=== PATIENT | female | born 1990 | race Caucasian/White ===

== ENCOUNTER 2019-06-05 05:45 | Emergency (ER) | payer OTHER, SELFPAY ==
[2019-06-05] MEDS ORDERED: ACETAMINOPHEN 500 MG TAB ONE (06:36)
[2019-06-05] MEDS ORDERED: LEVALBUTEROL 1.25 MG/3 ML NEB ONE (06:36)
[2019-06-05] MEDS ORDERED: ONDANSETRON 4 MG (ODT) TAB ONE (06:36)
[2019-06-05] MEDS ORDERED: PEN G BENZ LA 1.2MU/2ML SYRINGE IM ONE (07:55)
[2019-06-05] MEDS ORDERED: IBUPROFEN 400 MG TAB ONE (08:08)
[2019-06-05] MEDS ORDERED: IBUPROFEN 200 MG TAB PO ONE (08:08)
--- NOTE | 2019-06-05 08:21 | EDPHYS ---
Physician Documentation [facility] Name: Reena Sutton Age: 28 yrs Sex: Female : 1990 Arrival Date: 06/05/2019 Time: 05:48 Bed 13 Private MD: ED Physician Kanu Young HPI: 06/04 06:08 This 28 yrs old Female presents to ER via Ambulatory with complaints of Flu jmm Symptoms. 06:08 Onset: The symptoms/episode began/occurred 3 day(s) ago. Associated signs and symptoms: jmm Pertinent positives: cough, diarrhea, fever, vomiting. Modifying factors: The patient symptoms are alleviated by nothing, the patient symptoms are aggravated by nothing. This is a 28 year old female with a history of anemia that presents to the ED with complaints of cough, congestion, fever, sore throat, vomiting, diarrhea. Patient states a coworker had similar symptoms. . 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 - Social history:: Smoking status: Patient denies any tobacco usage or history of. ROS: 06:08 Constitutional: Positive for fever. jmm 06:08 ENT: Positive for sore throat. 06:08 Respiratory: Positive for cough. 06:08 Abdomen/GI: Positive for vomiting, diarrhea. 06:08 All other systems are negative. Exam: 06:08 Head/Face: atraumatic. Eyes: EOMI, no conjunctival erythema appreciated jmm 06:08 Chest/axilla: Normal chest wall appearance and motion. 06:08 Abdomen/GI: Non distended, soft Back: Normal ROM Skin: General appearance color normal MS/ Extremity: Moves all extremities, no obvious deformities appreciated, no edema noted to the lower extremities Neuro: Awake and alert, normal gait Psych: Behavior is normal, Mood is normal, Patient is cooperative and pleasant 06:08 Constitutional: The patient appears alert, awake, uncomfortable. 06:08 ENT: Posterior pharynx: erythema, that is moderate. 06:08 Cardiovascular: Rate: normal, Rhythm: regular. 06:08 Respiratory: the patient does not display signs of respiratory distress, Respirations: normal, Breath sounds: are clear throughout. 06:08 Abdomen/GI: Inspection: abdomen appears normal, Bowel sounds: normal, Palpation: soft, in all quadrants. 06:08 Back: CVA tenderness, is absent, is noted bilaterally. Vital Signs: 06:08 BP 116 / 75; Pulse 92; Resp 20; Temp 102.3(O); Pulse Ox 99% on R/A; Weight 61.23 kg lp1 (R); Height 5 ft. 4 in. (162.56 cm); Pain 7/10; 07:10 BP 106 / 68; Pulse 114; Resp 20 S; Temp 98.9(O); Pulse Ox 99% on R/A; em 06:08 Body Mass Index 23.17 (61.23 kg, 162.56 cm) lp1 MDM: 06:15 Patient medically screened. [facility] 08:17 Data reviewed: vital signs, nurses notes. Counseling: I had a detailed discussion with césar the patient and/or guardian regarding: the historical points, exam findings, and any diagnostic results supporting the discharge/admit diagnosis, lab results, the need for outpatient follow up, to return to the emergency department if symptoms worsen or persist or if there are any questions or concerns that arise at home. ED course: Patient is alert and non toxic in appearance. No signs of resp distress appreciated. Increased HR most likely due to xopenex. Patient treated for strep in the ED with bicillin. Out of the window for tamiflu. Patient given strict return precautions. Patient understood and agrees with the plan of care. . 06/04 06:07 Order name: Flu; Complete Time: 06:30 lp1 06/04 06:07 Order name: Strep; Complete Time: 06:51 1 06/04 07:48 Order name: Urine Dipstick--Ancillary (enter results) 06/04 07:48 Order name: Urine --Ancillary (enter results) [facility] 06/04 06:29 Order name: Urine Dipstick-Ancillary (obtain specimen); Complete Time: 07:47 [facility] 06/04 06:29 Order name: Urine Test (obtain specimen); Complete Time: 07:47 [facility] 06/04 07:37 Order name: Vital Signs; Complete Time: 07:52 [facility] Administered Medications: 06:38 Drug: Tylenol 1000 mg Route: PO; lp1 07:58 Follow up: Response: No adverse reaction; Temperature is decreased em 06:38 Drug: Zofran (Ondansetron) 4 mg Route: PO; lp1 07:58 Follow up: Response: No adverse reaction; Marked relief of symptoms; Nausea is decreasedem 06:38 Drug: Xopenex (3) 1.25 mg Route: Inhalation; lp1 07:57 Follow up: Response: No adverse reaction; Marked relief of symptoms em 07:55 Drug: Bicillin L-A 1.2 million units Route: IM; Site: right gluteus; em 08:25 Follow up: Response: No adverse reaction em 08:07 Drug: Motrin 600 mg Route: PO; em 08:26 Follow up: Response: No adverse reaction em Disposition: 10:52 Co-signature as Attending Physician, Kanu Young MD I agree with the assessment and tw4 plan of care. Disposition: 06/05/19 08:20 Discharged to Home. Impression: Influenza due to certain identified influenza viruses, Streptococcal pharyngitis. - Condition is Stable. - Discharge Instructions: Influenza, Adult, Strep Throat. - Prescriptions for Bromfed DM 2- 30-10 mg/5 mL Oral syrup - take 10 milliliter by ORAL route every 4 hours; 1 bottle. Zofran ODT 4 mg Oral tablet,disintegrating - place 1 tablet by TRANSLINGUAL route every 4-6 hours; 20 tablet. - Medication Reconciliation Form, Thank You Letter, Antibiotic Education, Prescription Opioid Use, Work release form form. - Follow up: Private Physician; When: 2 - 3 days; Reason: Recheck today's complaints, Continuance of care, Re-evaluation by your physician. Signatures: Dispatcher [employer] Abhijit Campbell PA PA jmm Munoz, Edgar, RN RN em Pena, Laura, RN RN lp1 Wadley, Terrence, MD MD tw4 Corrections: (The following items were deleted from the chart) 08:40 08:20 06/05/2019 08:20 Discharged to Home. Impression: Influenza due to certain em identified influenza viruses; Streptococcal pharyngitis. Condition is Stable. Forms are Medication Reconciliation Form, Thank You Letter, Antibiotic Education, Prescription Opioid Use. Follow up: Private Physician; When: 2 - 3 days; Reason: Recheck today's complaints, Continuance of care, Re-evaluation by your physician. césar
--- NOTE | 2019-06-05 08:21 | ER ---
Nurse's Notes [facility] Name: Reena Sutton Age: 28 yrs Sex: Female : 1990 Arrival Date: 06/05/2019 Time: 05:48 Bed 13 Private MD: Diagnosis: Influenza due to certain identified influenza viruses;Streptococcal pharyngitis Presentation: 06/04 06:08 Chief complaint: Patient states: Cough, congestion, body aches, chills since Sunday; lp1 States some diarrhea, pelvic pain, low back pain; Productive cough; Took OTC Cold and Flu medicine at home. Coronavirus screen: The patient has NOT traveled to a country currently being monitored by the CDC within the last 14 days. The patient has NOT had contact with any known and/or suspected case of coronavirus. Ebola Screen: No symptoms or risks identified at this time. Initial Sepsis Screen: Does the patient meet any 2 criteria? Temp <36.0*C (96.8*F)) or > 38.3*C (100.9*F). HR > 90 bpm. Yes Does the patient have a suspected source of infection? Yes: Productive cough/pneumonia If YES to both, name of provider notified: Abhijit KENT. Risk Assessment: Do you want to hurt yourself or someone else? Patient reports no desire to harm self or others. Onset of symptoms was June 02, 2019. 06:08 Method Of Arrival: Ambulatory lp1 06:08 Acuity: ZURI 3 lp1 06:12 Note Provider aware of sepsis screening, verbal order to hold on sepsis protocol. 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 - Social history:: Smoking status: Patient denies any tobacco usage or history of. Screenin:14 Abuse screen: Denies threats or abuse. Denies injuries from another. Nutritional lp1 screening: No deficits noted. Tuberculosis screening: No symptoms or risk factors identified. Fall Risk None identified. Assessment: 06:15 General: Appears ill, Behavior is appropriate for age. Pain: Complains of pain in lp1 suprapubic area, low back pain Pain currently is 7 out of 10 on a pain scale. Neuro: Level of Consciousness is awake, alert, obeys commands, Oriented to person, place, time, situation. Cardiovascular: Patient's skin is warm and dry. Respiratory: Reports cough that is productive, Airway is patent Respiratory effort is even, Respiratory pattern is regular, Breath sounds are coarse bilaterally. Onset: The symptoms/episode began/occurred 2 days ago, the patient has mild shortness of breath. GI: Abdomen is non-distended, Reports diarrhea, nausea. : No signs and/or symptoms were reported regarding the genitourinary system. EENT: No signs and/or symptoms were reported regarding the EENT system. Derm: Skin is intact, Skin is dry, Skin is flushed, Skin temperature is hot. Musculoskeletal: No deficits noted. 07:10 Reassessment: Patient appears in no apparent distress at this time. Patient and/or em family updated on plan of care and expected duration. Pain level reassessed. Patient is alert, oriented x 3, equal unlabored respirations, skin warm/dry/pink. Patient states feeling better. Patient states symptoms have improved. Vital Signs: 06:08 BP 116 / 75; Pulse 92; Resp 20; Temp 102.3(O); Pulse Ox 99% on R/A; Weight 61.23 kg lp1 (R); Height 5 ft. 4 in. (162.56 cm); Pain 7/10; 07:10 BP 106 / 68; Pulse 114; Resp 20 S; Temp 98.9(O); Pulse Ox 99% on R/A; em 06:08 Body Mass Index 23.17 (61.23 kg, 162.56 cm) lp1 ED Course: 05:48 Patient arrived in ED. cl3 06:01 Abhijit Terrell PA is PHCP. jmm 06:01 Kanu Young MD is Attending Physician. jmm 06:05 Flu and/or RSV swab sent to lab. Strep swab sent to lab. lp1 06:12 Triage completed. lp1 06:12 Arm band placed on right wrist. lp1 06:15 Patient has correct armband on for positive identification. Pulse ox on. NIBP on. lp1 06:37 Carissa Bui, RN is Primary Nurse. lp1 07:45 Urine collected: clean catch specimen, clear. 3 08:39 No provider procedures requiring assistance completed. Patient did not have IV access em during this emergency room visit. Administered Medications: 06:38 Drug: Tylenol 1000 mg Route: PO; lp1 07:58 Follow up: Response: No adverse reaction; Temperature is decreased em 06:38 Drug: Zofran (Ondansetron) 4 mg Route: PO; lp1 07:58 Follow up: Response: No adverse reaction; Marked relief of symptoms; Nausea is decreasedem 06:38 Drug: Xopenex (3) 1.25 mg Route: Inhalation; lp1 07:57 Follow up: Response: No adverse reaction; Marked relief of symptoms em 07:55 Drug: Bicillin L-A 1.2 million units Route: IM; Site: right gluteus; em 08:25 Follow up: Response: No adverse reaction em 08:07 Drug: Motrin 600 mg Route: PO; em 08:26 Follow up: Response: No adverse reaction em Outcome: 08:20 Discharge ordered by . [facility] 08:39 Discharged to home ambulatory. em 08:39 Condition: good 08:39 Discharge instructions given to patient, Instructed on discharge instructions, follow up and referral plans. medication usage, Demonstrated understanding of instructions, follow-up care, medications, Prescriptions given X 2. 08:40 Patient left the ED. em Signatures: Abhijit Terrell PA PA [facility] Rodney Reyes RN RN em Carissa Bui, RN RN 1 Jaelyn Rivers 3 Abbi Sanchez 3 Corrections: (The following items were deleted from the chart) 06:13 06:08 Initial Sepsis Screen: Does the patient meet any 2 criteria? No. Patient's lp1 initial sepsis screen is negative. Does the patient have a suspected source of infection? No. Patient's initial sepsis screen is negative. lp1
[2019-06-05 08:56] VITALS: O2SAT 99
[2019-06-05 08:58] VITALS: BP 106/68; TEMP 98.9
[2019-06-05 09:00] LABS: Urine Blood NEGATIVE (NEG); Urine Glucose NEGATIVE (NEG); Urine Protein NEGATIVE (NEG)
== END 2019-06-05 08:40 | disposition home or self-care (01) ==
LOC: ER 05:45
DX: J10.1 Influenza due to other identified influenza virus with other respiratory manifestations (principal); J02.0 Streptococcal pharyngitis
CPT/HCPCS: 81003; 81025; 87081; 87804; 96372; 99284; J0561

== ENCOUNTER 2021-12-04 21:32 | Emergency (ER) | payer SELFPAY ==
--- OUTSIDE RECORDS SUMMARY | 2021-12-04 21:36 | XMS REPORT | Continuity of Care Document ---
:1990 Author Organization [facility] t Address [address] [place] [address] [address] [place] [address] Care Team Providers Name Role Phone MARGARITO Attending Clinician Unavailable MARGARITO Admitting Clinician Unavailable Problems This patient has no known problems. Allergies, Adverse Reactions, Alerts This patient has no known allergies or adverse reactions. Medications This patient has no known medications. Procedures This patient has no known procedures. Encounters Start End Encounter Admission Attending Care Care Encounter Source Date/Time Date/Time Type Type Clinicians Facility Department ID 2021-11-03 2021-11-03 Outpatient JANINA RUIZ [id number] 00:00:00 00:00:00 [facility] 0[facility] Program Results This patient has no known results.
[2021-12-04 21:59] LABS: Urine Blood 1+ (Negative); Urine Glucose Trace (Negative); Urine Protein 2+ (Negative); Urine Specific Gravity >=1.030 (1.005-1.030); Urine pH 5.5 (5.0-7.0)
[2021-12-04] MEDS ORDERED: ONDANSETRON 4 MG/2 ML VIAL ONE (22:20)
[2021-12-04] MEDS ORDERED: KETOROLAC 30 MG/ML INJ ONE (22:20)
[2021-12-04] MEDS ORDERED: FAMOTIDINE 20 MG/2 ML VIAL IV ONE (22:20)
[2021-12-04] MEDS ORDERED: NA CHLORIDE 0.9% 1,000 ML ONE (22:20)
[2021-12-04 22:24] LABS: Absolute Lymphocytes (CBC) 1.3 K/uL (0.7-4.9); Hematocrit 39.5 % (36.0-45.0); Lymphocytes % 8.6 % (15.3-44.8); MCV 87.2 fL (80-100); MPV 8.9 fL (7.6-11.3); RBC Red Blood Cell Count 4.53 M/uL (3.86-4.86)
[2021-12-04 22:29] LABS: Albumin 3.9 g/dL (3.4-5.0); Bilirubin Total 0.7 mg/dL (0.2-1.0); Potassium 3.4 mmol/L (3.5-5.1)
--- NOTE | 2021-12-04 23:09 | RAD REPORT ---
EXAM DESCRIPTION: CT - Abdomen Pelvis W Contrast - 12/04/2021 10:50 pm CLINICAL HISTORY: Abdominal pain COMPARISON: 2008 TECHNIQUE: Computed axial tomography of the abdomen pelvis was obtained. 100 cc Isovue-300 was admin istered intravenously. All CT scans are performed using dose optimization technique as appropriate and may include automated exposure control or mA/KV adjustment according to patient size. FINDINGS: The liver, spleen, pancreas, adrenal and kidneys appear unremarkable. There is no evidence of diverticulitis. Normal appendix Retroverted uterus. 2.2 centimeter complex left ovarian cyst with small amount of free fluid multiple small follicles rig ht ovary IMPRESSION: 2.2 centimeter complex left ovarian cyst with small amount of free fluid
[2021-12-04] MEDS ORDERED: POTASSIUM 25 MEQ EFFERV TAB ONE (23:40)
[2021-12-05 00:11] LABS: Urine Mucus 2+ /HPF (None Seen)
[2021-12-05 00:12] LABS: Calcium Oxalate Crystals- Ur Few /HPF (None Seen); Urine Bacteria >50 /HPF (<20); Urine RBC <5 /HPF (None Seen)
--- NOTE | 2021-12-05 00:42 | ER ---
Nurse's Notes [facility] Name: Reena Sutton Age: 31 yrs Sex: Female : 1990 Arrival Date: 12/04/2021 Time: 21:35 Bed 20 Private MD: Diagnosis: Influenza due to other identified influenza virus with gastrointestinal manifestations;UTI/ Urinary tract infection, site not specified;Diarrhea, unspecified;Nausea with vomiting, unspecified Presentation: 12/04 21:39 Chief complaint: Lower abdominal pain, N/V/D, body aches, sore throat, and fever x 2 hb days. Not tolerating fluids/medication. Coronavirus screen: Client presents with at least one sign or symptom that may indicate coronavirus-19. Standard/surgical mask placed on the client. Provider contacted for isolation considerations. Ebola Screen: No symptoms or risks identified at this time. Risk Assessment: Do you want to hurt yourself or someone else? Patient reports no desire to harm self or others. Onset of symptoms was December 03, 2021. 21:39 Method Of Arrival: Wheelchair hb 21:39 Acuity: ZURI 3 hb Historical: - Allergies: 21:41 No Known Allergies; hb - PMHx: 21:41 Anemia; hb - PSHx: 21:41 section; Cholecystectomy; hb - Immunization history:: Adult Immunizations up to date, Client reports having NOT received the Covid vaccine. - Social history:: Smoking status: Patient denies any tobacco usage or history of. Screenin:10 Abuse screen: Denies threats or abuse. Nutritional screening: No deficits noted. ja4 Tuberculosis screening: No symptoms or risk factors identified. Fall Risk Assessment: 22:10 Pain: Complains of pain in abdomen Pain currently is 7 out of 10 on a pain scale. GI: ja4 Abd is soft Abdomen is tender to palpation Guarding noted. 22:26 General: Appears uncomfortable, slender, Behavior is calm, cooperative, appropriate for 6 age. Vital Signs: 21:39 BP 117 / 76; Pulse 103; Resp 18; Temp 98.9; Pulse Ox 99% on R/A; Weight 58.97 kg; hb Height 5 ft. 4 in. (162.56 cm); Pain 7/10; 12/05 00:58 BP 97 / 60; Pulse 66; Resp 14; Pulse Ox 97% on R/A; ja4 12/04 21:39 Body Mass Index 22.31 (58.97 kg, 162.56 cm) hb ED Course: 12/04 21:35 Patient arrived in ED. bp1 21:37 Phill Gudino PA is PHCP. cp 21:37 Phill Dozier MD is Attending Physician. cp 21:41 Triage completed. hb 21:41 Arm band placed on. hb 21:50 Kris Sanchez RN is Primary Nurse. ja4 22:10 Bed in low position. Call light in reach. ja4 22:10 Inserted saline lock: 20 gauge in right forearm, using aseptic technique. Blood ja4 collected. 22:29 COVID-19 SARS RT PCR (Document "Date of Onset" if Symptomatic) Sent. ja4 22:29 Influenza Screen (a \\T\\ B) Sent. ja4 22:52 CT Abd/Pelvis - IV Contrast Only In Process Unspecified. EDMS 23:58 Urine Microscopic Only Sent. ja4 12/05 00:58 IV discontinued, intact, bleeding controlled, No redness/swelling at site. Pressure ja4 dressing applied. Administered Medications: 12/04 22:15 Drug: Ketorolac 15 mg Route: IVP; Site: right forearm; ja4 22:16 Drug: NS 0.9% 1000 ml Route: IV; Rate: 1 bolus; Site: right forearm; ja4 22:16 Drug: Pepcid (famotidine) 20 mg Route: IVP; Site: right forearm; ja4 22:16 Drug: Zofran (Ondansetron) 4 mg Route: IVP; Site: right forearm; ja4 23:32 Drug: Potassium Effervescent Tablet 25 mEq Route: PO; ja4 12/05 00:57 Not Given (Patient Refused): Rocephin (cefTRIAXone) 1 grams IV at calculated rate once; ja4 Given slow IV push per pharmacy instructions 00:57 CANCELLED (forgot to givee): Tamiflu (oseltamivir) 75 mg PO once ja4 Medication: 12/04 22:10 VIS not applicable for this client. ja4 Outcome: 12/05 00:42 Discharge ordered by . cp 00:58 Discharged to home ja4 00:58 Condition: good 00:58 Discharge instructions given to Instructed on discharge instructions, follow up and referral plans. the need for admit, medication usage, Demonstrated understanding of Prescriptions given X 4. 01:00 Patient left the ED. ja4 Signatures: Dispatcher [employer] EDMS Phill Gudino PA PA cp Baxter, Heather, RN RN Tali Samaniego Jeremy, RN RN ja4
--- NOTE | 2021-12-05 00:42 | EDPHYS ---
Physician Documentation [facility] Name: Reena Sutton Age: 31 yrs Sex: Female : 1990 Arrival Date: 12/04/2021 Time: 21:35 Bed 20 Private MD: DEDE Physician Phill Dozier HPI: 12/04 22:00 This 31 yrs old Female presents to ER via Wheelchair with complaints of Abdominal Pain, cp Back Pain, Vomiting. 22:00 The patient presents with abdominal pain in the lower abdomen. cp 22:00 Onset: The symptoms/episode began/occurred 2 day(s) ago. Associated signs and symptoms: cp Pertinent positives: nausea, vomiting, and diarrhea, body aches, back pain, Pertinent negatives: constipation, vaginal discharge. Historical: - Allergies: 21:41 No Known Allergies; hb - PMHx: 21:41 Anemia; hb - PSHx: 21:41 section; Cholecystectomy; hb - Immunization history:: Adult Immunizations up to date, Client reports having NOT received the Covid vaccine. - Social history:: Smoking status: Patient denies any tobacco usage or history of. ROS: 22:05 Constitutional: Positive for body aches, Negative for fever, poor PO intake. cp 22:05 Eyes: Negative for injury, pain, redness, and discharge. cp 22:05 ENT: Positive for sore throat, Negative for drainage from ear(s), ear pain, difficulty swallowing, difficulty handling secretions. 22:05 Cardiovascular: Negative for chest pain. 22:05 Respiratory: Positive for cough, Negative for shortness of breath, wheezing. 22:05 Abdomen/GI: Positive for abdominal pain, nausea, vomiting, and diarrhea, Negative for constipation. 22:05 : Negative for vaginal bleeding, vaginal discharge. 22:05 Neuro: Positive for headache, Negative for altered mental status, weakness. 22:05 All other systems are negative. Exam: 22:10 Constitutional: The patient appears in no acute distress, alert, awake, non-toxic, well cp developed, well nourished, uncomfortable. 22:10 Head/Face: Normocephalic, atraumatic. cp 22:10 Eyes: Periorbital structures: appear normal, Conjunctiva: normal, no exudate, no injection, Sclera: no appreciated abnormality, Lids and lashes: appear normal, bilaterally. 22:10 ENT: External ear(s): are unremarkable, Nose: is normal, Mouth: Lips: moist, Oral mucosa: pink and intact, moist, Posterior pharynx: Airway: no evidence of obstruction, patent, swelling, is not appreciated, erythema, is not appreciated, exudate, is not appreciated. 22:10 Neck: ROM/movement: is normal, is supple, without pain, no range of motions limitations, no meningismus. 22:10 Chest/axilla: Inspection: normal. 22:10 Cardiovascular: Rate: tachycardic, Rhythm: regular. 22:10 Respiratory: the patient does not display signs of respiratory distress, Respirations: normal, no use of accessory muscles, no retractions, labored breathing, is not present, Breath sounds: are clear throughout, no decreased breath sounds, no stridor, no wheezing. 22:10 Abdomen/GI: Inspection: abdomen appears normal, Bowel sounds: active, all quadrants, Palpation: soft, in all quadrants, moderate abdominal tenderness, in the right lower quadrant and left lower quadrant, rebound tenderness, is not appreciated, involuntary guarding, is not appreciated. 22:10 Back: pain, that is moderate, of the low back area, ROM is painful, with all movement. 22:10 Skin: cellulitis, is not appreciated, no rash present. 22:10 Neuro: Orientation: to person, place \\T\\ time. Mentation: is normal, Motor: moves all fours, strength is normal, Sensation: is normal. 23:45 : Pelvic Exam: The exam is refused by the patient/guardian. The risks and cp consequences are understood by the patient. Vital Signs: 21:39 BP 117 / 76; Pulse 103; Resp 18; Temp 98.9; Pulse Ox 99% on R/A; Weight 58.97 kg; hb Height 5 ft. 4 in. (162.56 cm); Pain 7/10; 12/05 00:58 BP 97 / 60; Pulse 66; Resp 14; Pulse Ox 97% on R/A; ja4 12/04 21:39 Body Mass Index 22.31 (58.97 kg, 162.56 cm) hb MDM: 12/04 21:42 Patient medically screened. [facility] 12/05 00:42 Data reviewed: vital signs, nurses notes, lab test result(s), radiologic studies, CT cp scan. 00:42 Counseling: I had a detailed discussion with the patient and/or guardian regarding: the cp historical points, exam findings, and any diagnostic results supporting the discharge/admit diagnosis, lab results, radiology results, to return to the emergency department if symptoms worsen or persist or if there are any questions or concerns that arise at home. Response to treatment: the patient's symptoms have markedly improved after treatment, and as a result, I will discharge patient. Special discussion: Based on the patient's Hx, exam, and Dx evaluation, there is no indication for emergent surgery or inpatient Tx. It is understood by the patient/guardian that if the Sx's persist or worsen they need to return immediately for re-evaluation. 12/04 21:58 Order name: CBC with Diff; Complete Time: 23:24 12/04 23:24 Interpretation: Normal except: WBC 15.10; JASMINA% 81.0; LYM% 8.6; NEUT A 12.2; MNA 1.5. 12/04 21:58 Order name: CMP; Complete Time: 23:24 12/04 23:24 Interpretation: Normal except: NA 135; K 3.4; AST 71; ALT 112; GLOB 4.1; A/G 1.0. 12/04 21:58 Order name: Lipase; Complete Time: 23:24 12/04 21:58 Order name: Urine Microscopic Only; Complete Time: 00:37 12/05 00:37 Interpretation: Abnormal: UBACT >50. 12/04 21:58 Order name: Influenza Screen (a \\T\\ B); Complete Time: 23:24 12/04 23:25 Interpretation: Abnormal: FLUB FLU B ----- POSITIVE for FLU B protein antigen. 12/04 21:58 Order name: COVID-19 SARS RT PCR (Document "Date of Onset" if Symptomatic); Complete cp Time: 23:52 12/04 23:52 Interpretation: Reviewed. 12/04 21:58 Order name: CT Abd/Pelvis - IV Contrast Only; Complete Time: 23:24 12/04 21:59 Order name: Urine Dipstick-Ancillary; Complete Time: 23:24 [facility] 12/05 00:16 Order name: Urine Culture [facility] 12/04 21:58 Order name: IV Saline Lock; Complete Time: 22:16 12/04 21:58 Order name: Labs collected and sent 12/04 21:58 Order name: Urine Dipstick-Ancillary (obtain specimen) 12/04 21:58 Order name: Urine Test (obtain specimen) cp Administered Medications: 12/04 22:15 Drug: Ketorolac 15 mg Route: IVP; Site: right forearm; ja4 22:16 Drug: NS 0.9% 1000 ml Route: IV; Rate: 1 bolus; Site: right forearm; ja4 22:16 Drug: Pepcid (famotidine) 20 mg Route: IVP; Site: right forearm; ja4 22:16 Drug: Zofran (Ondansetron) 4 mg Route: IVP; Site: right forearm; ja4 23:32 Drug: Potassium Effervescent Tablet 25 mEq Route: PO; ja4 12/05 00:57 Not Given (Patient Refused): Rocephin (cefTRIAXone) 1 grams IV at calculated rate once; ja4 Given slow IV push per pharmacy instructions 00:57 CANCELLED (forgot to givee): Tamiflu (oseltamivir) 75 mg PO once ja4 Disposition Summary: 12/05/21 00:42 Discharge Ordered Location: Home cp Problem: new cp Symptoms: have improved cp Condition: Stable cp Diagnosis - Influenza due to other identified influenza virus with gastrointestinal cp manifestations - UTI/ Urinary tract infection, site not specified cp - Diarrhea, unspecified cp - Nausea with vomiting, unspecified cp Followup: cp - With: Private Physician - When: 2 - 3 days - Reason: Worsening of condition Discharge Instructions: - Discharge Summary Sheet cp - Diarrhea, Adult cp - Influenza, Adult cp - Nausea and Vomiting, Adult cp - Urinary Tract Infection, Adult cp Forms: - Medication Reconciliation Form cp - Thank You Letter cp - Antibiotic Education cp - Prescription Opioid Use cp - Work release form eb Prescriptions: - Augmentin 875-125 mg Oral Tablet - take 1 tablet by ORAL route every 12 hours for 7 days; 14 tablet; Refills: 0, cp Product Selection Permitted - Ibuprofen 600 mg Oral Tablet - take 1 tablet by ORAL route every 8 hours As needed take with food; 30 tablet; cp Refills: 0, Product Selection Permitted - Zofran 4 mg Oral Tablet - take 1 tablet by ORAL route every 12 hours As needed; 20 tablet; Refills: 0, cp Product Selection Permitted - Tamiflu 75 mg Oral Capsule - take 1 tablet by ORAL route every 12 hours for 5 days; 10 tablet; Refills: 0, cp Product Selection Permitted Signatures: Dispatcher [employer] EDMS Phill Dozier MD MD cha Page, Corey, PA PA cp Jeny De La Garza RN RN hb Allen, Jeremy, RN RN ja4 Corrections: (The following items were deleted from the chart) 12/04 22:38 22:02 Constitutional: The patient appears in no acute distress, alert, awake, cp non-toxic, well developed, well nourished, cp 22:38 22:02 Head/Face: Normocephalic, atraumatic. cp cp 22:38 22:02 Eyes: Periorbital structures: appear normal, Conjunctiva: normal, no exudate, no cp injection, Sclera: no appreciated abnormality, Lids and lashes: appear normal, bilaterally, cp 22:38 22:02 ENT: External ear(s): are unremarkable, Nose: is normal, Mouth: Lips: moist, Oral cp mucosa: pink and intact, moist, Posterior pharynx: Airway: no evidence of obstruction, patent, erythema, is not appreciated, exudate, is not appreciated, cp 22:38 22:02 Neck: ROM/movement: is normal, is supple, without pain, no range of motions cp limitations, cp 22:38 22:02 Chest/axilla: Inspection: normal, cp cp 22:38 22:02 Cardiovascular: Rate: tachycardic, Rhythm: regular, cp cp 22:38 22:02 Respiratory: the patient does not display signs of respiratory distress, cp Respirations: normal, no use of accessory muscles, no retractions, labored breathing, is not present, Breath sounds: are clear throughout, no decreased breath sounds, no stridor, no wheezing, cp 22:38 22:02 Abdomen/GI: Inspection: abdomen appears normal, Bowel sounds: active, all cp quadrants, Palpation: soft, in all quadrants, mild abdominal tenderness, in the right lower quadrant and left lower quadrant, rebound tenderness, is not appreciated, involuntary guarding, is not appreciated, cp 22:38 22:02 Back: pain, is absent, ROM is normal, cp cp 22:38 22:02 Skin: cellulitis, that is mild, on the back, cp cp 22:38 22:02 Neuro: Orientation: to person, place \\T\\ time. Mentation: is normal, Cerebellar cp function: is grossly normal, Motor: moves all fours, strength is normal, Sensation: is normal, cp 23:24 23:24 Normal except: NA 135; K 3.4. cp cp 12/05 00:57 00:38 Tamiflu (oseltamivir) 75 mg PO once ordered. cp ja4
[2021-12-05 01:11] VITALS: TEMP 98.9
[2021-12-05 01:14] VITALS: BP 97/60; O2SAT 97
== END 2021-12-05 01:00 | disposition home or self-care (01) ==
LOC: ER 21:32
DX: J10.2 Influenza due to other identified influenza virus with gastrointestinal manifestations (principal); N39.0 Urinary tract infection, site not specified; R19.7 Diarrhea, unspecified; Z20.822 Contact with and (suspected) exposure to COVID-19
CPT/HCPCS: 36415; 74177; 80053; 81003; 81015; 83690; 85025; 87086; 87088; 87804; 96374; 96375; 99284; J2405; J7030; Q9967; U0003

== ENCOUNTER 2022-02-18 11:04 | Emergency (ER) | payer SELFPAY ==
--- OUTSIDE RECORDS SUMMARY | 2022-02-18 11:07 | XMS REPORT | Continuity of Care Document ---
:1990 Author Organization [facility] t Address [address] [place] [address] Dr. Hutchison [address] [place] [id number] Care Team Providers Name Role Phone MARGARITO [...] ID 2021-11-03 2021-11-03 [id number] [id number] Program Results This patient has no known results.
[2022-02-18] MEDS ORDERED: NA CHLORIDE 0.9% 1,000 ML ONE (11:29)
[2022-02-18 11:48] LABS: Absolute Lymphocytes (CBC) 2.2 K/uL (0.7-4.9); Hematocrit 42.9 % (36.0-45.0); Lymphocytes % 31.9 % (15.3-44.8); MCV 86.6 fL (80-100); MPV 8.7 fL (7.6-11.3); RBC Red Blood Cell Count 4.95 M/uL (3.86-4.86)
[2022-02-18 12:19] LABS: Potassium 2.8 mmol/L (3.5-5.1)
[2022-02-18 12:40] LABS: SARS-COV-2 RT PCR NEGATIVE (NEGATIVE)
[2022-02-18] MEDS ORDERED: POTASSIUM 25 MEQ EFFERV TAB ONE (13:07)
[2022-02-18] MEDS ORDERED: KCL 20 MEQ/100 mL IVPB 100 ML IV ONE (13:13)
--- NOTE | 2022-02-18 13:20 | ER ---
Nurse's Notes [facility] Name: Reena Sutton Age: 31 yrs Sex: Female : 1990 Arrival Date: 02/18/2022 Time: 11:05 Bed 14 Private MD: Diagnosis: Influenza due to identified novel influenza A virus with other respiratory manifestations;Hypokalemia Presentation: 02/18 11:22 Chief complaint: Patient states: I had the flu since Sunday and this morning I've had iw some chest tightness and I woke up this morning and my mouth and nose and fingers and feet , i didn't feel like I was getting enough air, last time this happened I had low potassium,. also has had vomiting and diarrhea since Sunday and not eating. Coronavirus screen: Client presents with at least one sign or symptom that may indicate coronavirus-19. Ebola Screen: Patient negative for fever greater than or equal to 101.5 degrees Fahrenheit, and additional compatible Ebola Virus Disease symptoms Patient denies exposure to infectious person. Patient denies travel to an Ebola-affected area in the 21 days before illness onset. No symptoms or risks identified at this time. Initial Sepsis Screen: Does the patient meet any 2 criteria? No. Patient's initial sepsis screen is negative. Does the patient have a suspected source of infection? No. Patient's initial sepsis screen is negative. Risk Assessment: Do you want to hurt yourself or someone else? Patient reports no desire to harm self or others. Onset of symptoms was February 13, 2022. 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 Screenin:25 Abuse screen: Denies threats or abuse. Denies injuries from another. Nutritional ko1 screening: No deficits noted. Tuberculosis screening: No symptoms or risk factors identified. Fall Risk None identified. Assessment: 11:25 General: Appears distressed, uncomfortable, ill, Behavior is calm, cooperative, ko1 appropriate for age. Pain: Complains of pain in abdomen Pain does not radiate. Pain began gradually. Neuro: No deficits noted. Cardiovascular: No deficits noted. Respiratory: No deficits noted. GI: Reports cramping, nausea, vomiting. : No deficits noted. EENT: No deficits noted. Derm: No deficits noted. Musculoskeletal: No deficits noted. 14:45 Reassessment: patient vomiting actively, GARMENT FINISHER notified, orders received. ko1 15:10 Reassessment: patient reports no more n/v. ko1 Vital Signs: 11:22 BP 104 / 92; Pulse 69; Resp 16; Temp 97.6; Pulse Ox 100% ; Weight 58.97 kg; Height 5 iw ft. 4 in. (162.56 cm); Pain 5/10; 11:25 BP 110 / 78; Pulse 74; Pulse Ox 100% on R/A; ko1 12:30 BP 123 / 82; Pulse 68; ko1 13:30 BP 109 / 86; Pulse 84; ko1 15:00 BP 114 / 78; Pulse 82; Pulse Ox 100% on R/A; ko1 11:22 Body Mass Index 22.31 (58.97 kg, 162.56 cm) iw ED Course: 11:05 Patient arrived in ED. as 11:06 [facility] 7 11:06 Roberto Jane MD is Attending Physician. 7 11:24 Triage completed. iw 11:25 Arm band placed on. iw 11:25 Patient has correct armband on for positive identification. Placed in gown. Bed in low ko1 position. Call light in reach. Side rails up X 1. Pulse ox on. NIBP on. 11:25 No provider procedures requiring assistance completed. ko1 11:26 Michelle Topete, RN is Primary Nurse. ko1 11:35 Inserted saline lock: 20 gauge in right antecubital area, using aseptic technique. ko1 Blood collected. Patient maintains SpO2 saturation greater than 95% on room air. 11:42 CBC with Diff Sent. ko1 11:42 BMP Sent. ko1 11:42 Strep Sent. ko1 11:42 COVID-19/FLU A+B Sent. ko1 12:17 XRAY Chest (1 view) In Process Unspecified. EDMS 15:15 IV discontinued, intact, bleeding controlled, No redness/swelling at site. Pressure ko1 dressing applied. Administered Medications: 11:42 Drug: NS 0.9% 1000 ml Route: IV; Rate: 1 bolus; Site: right antecubital; ko1 13:08 Drug: Potassium Effervescent Tablet 50 mEq Route: PO; ko1 13:19 Drug: Potassium Chloride 10 mEq Route: IV; Rate: 1 calculated rate; Site: right ko1 antecubital; 14:59 Drug: Zofran (Ondansetron) 4 mg Route: IVP; Site: right antecubital; ko1 Medication: 11:25 VIS not applicable for this client. ko1 Outcome: 13:19 Discharge ordered by . deborah 15:15 Discharged to home ambulatory. ko1 15:15 Condition: improved 15:15 Discharge instructions given to patient, Instructed on discharge instructions, follow up and referral plans. medication usage, Demonstrated understanding of instructions, follow-up care, medications, Prescriptions given X 2. 15:25 Patient left the ED. ko1 Signatures: Dispatcher [employer] Maryanne King Irene, RN RN Linda Monsalve FNP SENIOR SALES ENGINEER [facility] Michelle Topete RN RN ko1
--- NOTE | 2022-02-18 13:20 | EDPHYS ---
Physician Documentation [facility] Name: Reena Sutton Age: 31 yrs Sex: Female : 1990 Arrival Date: 02/18/2022 Time: 11:05 Bed 14 Private MD: ED Physician Roberto Jane HPI: 02/18 11:22 This 31 yrs old Female presents to ER via Unassigned with complaints of Flu Symptoms, jh7 Chest Tightness. 11:22 Onset: The symptoms/episode began/occurred 6 day(s) ago. Associated signs and symptoms: jh7 Pertinent positives: sore throat, Chest tightness, body aches, tingling in the fingers. Patient reports flulike symptoms with chest tightness since Sunday. States that her fingers recently started tingling and that last time this occurred, she had very low potassium.. 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 ROS: 11:22 Eyes: Negative for injury, pain, redness, and discharge, ENT: Negative for injury, jh7 pain, and discharge, Neck: Negative for injury, pain, and swelling, Cardiovascular: Negative for chest pain, palpitations, and edema, Abdomen/GI: Negative for abdominal pain, nausea, vomiting, diarrhea, and constipation, Back: Negative for injury and pain, MS/Extremity: Negative for injury and deformity, Skin: Negative for injury, rash, and discoloration. 11:22 Constitutional: Positive for body aches, fatigue, Negative for fever. 11:22 Respiratory: Positive for Chest tightness, Negative for shortness of breath, wheezing. 11:22 Neuro: Positive for tingling, Negative for altered mental status, dizziness, gait disturbance, headache, loss of consciousness, syncope, visual changes. 11:22 All other systems are negative. Exam: 11:22 Eyes: Pupils equal round and reactive to light, extra-ocular motions intact. Lids and jh7 lashes normal. Conjunctiva and sclera are non-icteric and not injected. Cornea within normal limits. Periorbital areas with no swelling, redness, or edema. ENT: Nares patent. No nasal discharge, no septal abnormalities noted. Tympanic membranes are normal and external auditory canals are clear. Oropharynx with no redness, swelling, or masses, exudates, or evidence of obstruction, uvula midline. Mucous membranes moist. Neck: Trachea midline, no thyromegaly or masses palpated, and no cervical lymphadenopathy. Supple, full range of motion without nuchal rigidity, or vertebral point tenderness. No Meningismus. Cardiovascular: Regular rate and rhythm with a normal S1 and S2. No gallops, murmurs, or rubs. Normal PMI, no JVD. No pulse deficits. Respiratory: Lungs have equal breath sounds bilaterally, clear to auscultation and percussion. No rales, rhonchi or wheezes noted. No increased work of breathing, no retractions or nasal flaring. Abdomen/GI: Soft, non-tender, with normal bowel sounds. No distension or tympany. No guarding or rebound. No evidence of tenderness throughout. Back: No spinal tenderness. No costovertebral tenderness. Full range of motion. Skin: Warm, dry with normal turgor. Normal color with no rashes, no lesions, and no evidence of cellulitis. MS/ Extremity: Pulses equal, no cyanosis. Neurovascular intact. Full, normal range of motion. Neuro: Awake and alert, GCS 15, oriented to person, place, time, and situation. Cranial nerves II-XII grossly intact. Motor strength 5/5 in all extremities. Sensory grossly intact. Cerebellar exam normal. Normal gait. 11:22 Constitutional: The patient appears alert, awake, anxious. Vital Signs: 11:22 BP 104 / 92; Pulse 69; Resp 16; Temp 97.6; Pulse Ox 100% ; Weight 58.97 kg; Height 5 iw ft. 4 in. (162.56 cm); Pain 5/10; 11:25 BP 110 / 78; Pulse 74; Pulse Ox 100% on R/A; ko1 12:30 BP 123 / 82; Pulse 68; ko1 13:30 BP 109 / 86; Pulse 84; ko1 15:00 BP 114 / 78; Pulse 82; Pulse Ox 100% on R/A; ko1 11:22 Body Mass Index 22.31 (58.97 kg, 162.56 cm) iw MDM: 11:06 Patient medically screened. [facility] 13:42 Differential diagnosis: viral Infection, bacterial infection, URI, Influenza, COVID, jh7 hypokalemia. Data reviewed: vital signs, nurses notes, lab test result(s), radiologic studies, plain films. Data interpreted: Pulse oximetry: is 100 %. Interpretation: normal. Counseling: I had a detailed discussion with the patient and/or guardian regarding: the historical points, exam findings, and any diagnostic results supporting the discharge/admit diagnosis, to return to the emergency department if symptoms worsen or persist or if there are any questions or concerns that arise at home. Special discussion: PCP follow-up advised for treatment of chronic hypokalemia. 02/18 11:19 Order name: COVID-19/FLU A+B; Complete Time: 12:[address] [facility] 02/18 11:19 Order name: Strep; Complete Time: 12:[address] [facility] 02/18 11:19 Order name: BMP; Complete Time: 12:[address] [facility] 02/18 11:19 Order name: CBC with Diff; Complete Time: 11:[address] [facility] 02/18 11:19 Order name: XRAY Chest (1 view); Complete Time: 13:[address] [facility] 02/18 12:27 Order name: Throat Culture EDMS Administered Medications: 11:42 Drug: NS 0.9% 1000 ml Route: IV; Rate: 1 bolus; Site: right antecubital; ko1 13:08 Drug: Potassium Effervescent Tablet 50 mEq Route: PO; ko1 13:19 Drug: Potassium Chloride 10 mEq Route: IV; Rate: 1 calculated rate; Site: right ko1 antecubital; 14:59 Drug: Zofran (Ondansetron) 4 mg Route: IVP; Site: right antecubital; ko1 Disposition: 18:34 Co-signature as Attending Physician, Roberot Jane MD I agree with the assessment and rt plan of care. Disposition Summary: 02/18/22 13:19 Discharge Ordered Location: Home [facility] Problem: new [facility] Symptoms: have improved [facility] Condition: Stable [facility] Diagnosis - Influenza due to identified novel influenza A virus with other respiratory [facility] manifestations - Hypokalemia [facility] Followup: [facility] - With: Private Physician - When: 2 - 3 days - Reason: Recheck today's complaints Discharge Instructions: - Discharge Summary Sheet jh7 - Influenza, Adult jh7 - Hypokalemia [facility] Forms: - Medication Reconciliation Form 7 - Thank You Letter [facility] Prescriptions: - ProAir HFA 90 mcg/actuation Inhalation HFA aerosol inhaler - inhale 2 puff by INHALATION route every 4-6 hours As needed; 1 Inhaler; [facility] Refills: 0, Product Selection Permitted - ondansetron 4 mg Oral tablet,disintegrating - place 1 tablet by TRANSLINGUAL route 4 times per day As needed; 20 tablet; [facility] Refills: 0, Product Selection Permitted Signatures: Dispatcher [employer] EDZoe Fleming, RN RN iw Linda Monsalve FNP [employer] [facility] Michelle Topete, RN RN ko1 Roberto Jane MD MD rt
--- NOTE | 2022-02-18 13:25 | RAD REPORT ---
EXAM DESCRIPTION: Di Single View02/18/2022 12:15 pm CLINICAL HISTORY: Chest pain COMPARISON: none FINDINGS: The lungs appear clear of acute infiltrate. The heart is normal size IMPRESSION: No acute abnormalities displayed
[2022-02-18] MEDS ORDERED: ONDANSETRON 4 MG/2 ML VIAL ONE (15:00)
[2022-02-18 15:32] VITALS: TEMP 97.6; O2SAT 100
[2022-02-18 15:36] VITALS: BP 114/78
== END 2022-02-18 15:25 | disposition home or self-care (01) ==
LOC: ER 11:04
DX: J10.1 Influenza due to other identified influenza virus with other respiratory manifestations (principal); E87.6 Hypokalemia; Z20.822 Contact with and (suspected) exposure to COVID-19
CPT/HCPCS: 0240U; 36415; 71045; 80048; 85025; 87070; 87081; 96374; 96375; 99284; J2405; J3480; J7030

== ENCOUNTER 2024-07-25 16:04 | Emergency (ER) | payer SELFPAY ==
--- OUTSIDE RECORDS SUMMARY | 2024-07-25 16:07 | XMS REPORT | Continuity of Care Document ---
Author Name Unknown Address [address] [facility] [address] [place] [address] Organization [facility] Address [address] [facility] [address] [place] [address] Care Team Providers Care Immigration Coordinator Name Role Phone ANDREW WHEELER Primary Care Physician Unavai maddie PIMENTEL Attending Clinician Unavailab le ANDREW WHEELER Attending Clinician Unavailab le MARGARITO Admitting Clinician Unavailab le Payers Payer Name Policy Type Policy Number Effective Date Expirati on Date Source [id number] 2017 00:00:00 Allergies, Adverse Reactions, Alerts Allergy Name Allergy Type Status Severity Reaction(s) Onset Date Inactive Date Treating Clinician Comments Source NO KNOWN ALLERGIE S Drug Class Active [facility] Encounters Start Date/Time End Date/Time Encounter Type Admission Type Attending Clinicians Care Facility Care Department Encounter ID Source 2021-11-03 00:00:00 2021-11-03 00:00:00 Outpatient JANINA BURT [facility] [id number] [facility] 2017-05-30 13:00:00 2017-05-30 13:31:41 Outpatient ANDREW PRADO [facility] [id number] [facility]
[2024-07-25 17:12] LABS: Specific Gravity 1.013 (1.005-1.030)
[2024-07-25 17:13] LABS: Specific Gravity 1.013 (1.005-1.030); Urine Bacteria <20 /HPF (<20); Urine Bilirubin NEGATIVE (Negative); Urine Blood 1+ (Negative); Urine Clarity Extremely Turbid (Clear); Urine Color Light-Yellow (Yellow); Urine Crystals Unidentified Few /HPF (None Seen); Urine Culture Reflex Order REFLEXED; Urine Glucose NEGATIVE (Negative); Urine Ketones NEGATIVE (Negative); Urine Microscopic Reflex YN ORDER UMIC; Urine Mucus 1+ /HPF (None Seen); Urine Nitrite 1+ (Negative); Urine Protein TRACE (Negative); Urine Urobilinogen Normal (Normal); Urine WBC >50 /HPF (<5); Urine pH 5.5 (5.0-7.0)
[2024-07-25] MEDS ORDERED: ONDANSETRON 4 MG/2 ML VIAL ONE (18:18)
[2024-07-25] MEDS ORDERED: NA CHLORIDE 0.9% 1,000 ML ONE (18:18)
[2024-07-25 18:32] LABS: Absolute Basophils 0.1 K/uL (0-0.5); Absolute Eosinophils 0.1 K/uL (0-0.5); Absolute Lymphocytes (CBC) 2.7 K/uL (0.7-4.9); Absolute Monocytes 0.9 K/uL (0.1-1.3); Absolute Neutrophil 6.7 K/uL (1.8-8.0); Hematocrit 35.4 % (36.0-45.0); Hemoglobin 12.1 g/dL (12.0-15.0); Lymphocytes % 25.8 % (15.3-44.8); MCH 29.6 pg (27.0-35.0); MCHC 34.1 g/dL (32.0-36.0); MCV 86.8 fL (80-100); Monocytes % 8.8 % (3.3-12.3); Neutrophils % 63.4 % (41.7-73.7); Platelets 247 thou/uL (152-406); RBC Red Blood Cell Count 4.08 M/uL (3.86-4.86); Red Cell Distribution Width 13.7 % (12.1-15.2)
[2024-07-25 18:49] LABS: ALT/SGPT 18 U/L (13-56); Albumin 3.5 g/dL (3.4-5.0); Alkaline Phosphatase 70 U/L (45-117); Anion Gap 5.6 mEq/L (5.0-15.0); BUN Blood Urea Nitrogen 12 mg/dL (7-18); Bicarbonate 28 mEq/L (21-32); Bilirubin Total 0.3 mg/dL (0.2-1.0); Globulin 3.4 g/dL (2.3-3.5); Glomerular Filtration Rate 83 ml/min (=/>90); Glucose Level 97 mg/dL (74-106); Lipase 29 U/L (13-75); Potassium 3.6 mEq/L (3.5-5.1); Protein, Total 6.9 g/dL (6.4-8.2); Sodium Level 138 mEq/L (136-145)
[2024-07-25 18:51] LABS: AST/SGOT < 10 U/L (15-37)
[2024-07-25] MEDS ORDERED: CEFTRIAXONE 1000 MG/VIAL ONE (19:13)
--- NOTE | 2024-07-25 19:28 | ER ---
Nurse's Notes [facility] Name: Reena Sutton Age: 33 yrs Sex: Female : 1990 Arrival Date: 07/25/2024 Time: 16:04 Bed 11 Private MD: Diagnosis: UTI/ Urinary tract infection, site not specified Presentation: 07/25 16:44 Chief complaint: Patient states: Pelvic cramping, nausea, painful urination - left ld1 flank pain. Coronavirus screen: At this time, the client does not indicate any symptoms associated with coronavirus-19. Ebola Screen: No symptoms or risks identified at this time. Initial Sepsis Screen: Does the patient meet any 2 criteria? No. Patient's initial sepsis screen is negative. Does the patient have a suspected source of infection? No. Patient's initial sepsis screen is negative. Risk Assessment: Do you want to hurt yourself or someone else? Patient reports no desire to harm self or others. Onset of symptoms. 16:44 Method Of Arrival: Ambulatory ld1 16:44 Acuity: ZURI 3 ld1 Triage Assessment: 16:44 General: Appears in no apparent distress. comfortable, Behavior is calm, cooperative, ld1 appropriate for age. Pain: Complains of pain in low back area and pelvis Pain does not radiate. Pain currently is 8 out of 10 on a pain scale. Quality of pain is described as throbbing, Pain began suddenly. EENT: No signs and/or symptoms were reported regarding the EENT system. Neuro: Level of Consciousness is awake, alert, obeys commands, Oriented to person, place, time, situation. Cardiovascular: Capillary refill < 3 seconds Patient's skin is warm and dry. Respiratory: Airway is patent Respiratory effort is even, unlabored. GI: Abdomen is round non-distended. : Reports burning with urination, pain in left flank(s). Derm: No signs and/or symptoms reported regarding the dermatologic system. Musculoskeletal: No signs and/or symptoms reported regarding the musculoskeletal system. 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 - Infectious Disease History:: Denies. - Social history:: Smoking status: Patient denies any tobacco usage or history of. Screenin:29 [facility] ED Fall Risk Assessment (Adult) History of falling in the last 3 months, me1 including since admission No falls in past 3 months (0 pts) Confusion or Disorientation No (0 pts) Intoxicated or Sedated No (0 pts) Impaired Gait No (0 pts) Mobility Assist Device Used No (0 pt) Altered Elimination No (0 pt) Score/Fall Risk Level 0 - 2 = Low Risk Maintained a safe environment, Provided non-skid footwear, Hourly rounding (assess needs \T\ fall precautionary measures) done. Abuse screen: Denies threats or abuse. Nutritional screening: No deficits noted. Tuberculosis screening: No symptoms or risk factors identified. Assessment: 18:29 General: Appears uncomfortable, ill, well groomed, well developed, well nourished, me1 Behavior is calm, cooperative, appropriate for age, Reports Pelvic cramping, nausea, painful urination - left flank pain. Pain: Complains of pain in suprapubic area and pelvis and back and low back area Pain does not radiate. Pain currently is 8 out of 10 on a pain scale. Quality of pain is described as crampy, Pain began 1 day ago. Is continuous. Neuro: Level of Consciousness is awake, alert, obeys commands, Oriented to person, place, time, situation, Appropriate for age. Cardiovascular: Patient's skin is warm and dry. Respiratory: Airway is patent Respiratory effort is even, unlabored, Respiratory pattern is regular, symmetrical. GI: No signs and/or symptoms were reported involving the gastrointestinal system. : Reports burning with urination, cramping, in left flank(s) lower back urinary frequency. EENT: No signs and/or symptoms were reported regarding the EENT system. Derm: Skin is intact, is healthy with good turgor, Skin is pink, warm \T\ dry. Musculoskeletal: No signs and/or symptoms reported regarding the musculoskeletal system. Vital Signs: 16:44 BP 120 / 83; Pulse 76; Resp 18; Temp 97.7(TE); Pulse Ox 100% on R/A; Weight 65.77 kg; ld1 Height 5 ft. 4 in. ; Pain 8/10; 19:33 BP 118 / 77; Pulse 72; Resp 17; Temp 98.2; Pulse Ox 99% ; me1 16:44 Body Mass Index 24.89 (65.77 kg, 162.56 cm) ld1 16:44 Pain Scale: Adult ld1 ED Course: 16:08 Patient arrived in ED. cj3 16:25 Michael Villegas FNP-C [facility]. dr5 16:25 Phill Dozier MD is Attending Physician. dr5 16:44 Arm band placed on right wrist. ld1 16:45 Triage completed. ld1 18:16 Christel Trammell, ORQUIDEA is Primary Nurse. me1 18:22 Initial lab(s) drawn, by me, sent to lab. Inserted saline lock: 22 gauge in right me1 antecubital area, using aseptic technique. 18:29 Patient has correct armband on for positive identification. Bed in low position. Call me1 light in reach. Side rails up X 1. Provided Education on: POC. Verbalized understanding.. Client placed on continuous cardiac and pulse oximetry monitoring. NIBP monitoring applied. Pulse ox on. NIBP on. 18:29 No provider procedures requiring assistance completed. me1 19:34 IV discontinued, intact, bleeding controlled, No redness/swelling at site. Pressure me1 dressing applied. Administered Medications: 18:28 Drug: Ondansetron IVP 4 mg IVP once; over 2 minutes Route: IVP; Site: right antecubital;me1 19:15 Follow up: Response: No adverse reaction; Nausea is decreased me1 18:28 Drug: NS 0.9% IV 1000 ml IV at 1 bolus Per protocol; to be given as a bolus over 60 me1 minutes Route: IV; Rate: 1 bolus; Site: right antecubital; 19:30 Follow up: Response: No adverse reaction; IV Status: Completed infusion; IV Intake: me1 1000ml 19:15 Drug: Rocephin IV 1 grams IV at per protocol once; Given slow IV push per pharmacy me1 instructions Route: IV; Rate: per protocol; Site: right antecubital; 19:30 Follow up: Response: No adverse reaction; IV Status: Completed infusion me1 Medication: 18:29 VIS not applicable for this client. me1 Intake: 19:30 IV: 1000ml; Total: 1000ml. me1 Outcome: 19:28 Discharge ordered by . dr5 19:34 Discharged to home ambulatory, me1 19:34 Condition: stable 19:34 Discharge instructions given to patient, Instructed on discharge instructions, follow up and referral plans. medication usage, Demonstrated understanding of instructions, follow-up care, medications, Prescriptions given X 1, 19:35 Patient left the ED. me1 Signatures: Kavitha Carter RN RN ld1 Christel Trammell RN RN me1 Michael Villegas, CRYOGENICS REPAIRER-C CRYOGENICS REPAIRER-Cdr5 Rochelle Baker cj3 Corrections: (The following items were deleted from the chart) 16:46 16:44 Pulse 76bpm; Resp 18bpm; Pulse Ox 100% RA; Pain 11/09, Adult; ld1 ld1 18:29 16:44 Chief complaint: Patient states: Pelvic cramping, nausea, painful urination - me1 left flank pain. ld1
--- NOTE | 2024-07-25 19:28 | EDPHYS ---
Physician Documentation [facility] Name: Reena Sutton Age: 33 yrs Sex: Female : 1990 Arrival Date: 07/25/2024 Time: 16:04 Bed 11 Private MD: ED Physician Phill Dozier HPI: 07/25 19:29 This 33 yrs old Female presents to ER via Ambulatory with complaints of dr5 Urinary Problem. 19:29 Onset: The symptoms/episode began/occurred acutely. Patient is a 33-year-old female dr5 with a history of anemia coming in with dysuria and back pain left worse than right. Patient states has been hydrating and transient cranberry juice with no relief. Patient denies fever, nausea, vomiting or diarrhea, . 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 - Infectious Disease History:: Denies. - Social history:: Smoking status: Patient denies any tobacco usage or history of. ROS: 19:31 Constitutional: as per hpi dr5 Exam: 19:31 Constitutional: This is a well developed, well nourished patient who is awake, alert, dr5 and in no acute distress. Head/Face: Normocephalic, atraumatic. Eyes: Pupils equal round and reactive to light, extra-ocular motions intact. Lids and lashes normal. Conjunctiva and sclera are non-icteric and not injected. Cornea within normal limits. Periorbital areas with no swelling, redness, or edema. Neck: Trachea midline, no thyromegaly or masses palpated, and no cervical lymphadenopathy. Supple, full range of motion without nuchal rigidity, or vertebral point tenderness. No Meningismus. Chest/axilla: Normal chest wall appearance and motion. Nontender with no deformity. No lesions are appreciated. Cardiovascular: Regular rate and rhythm with a normal S1 and S2. Normal PMI, no JVD. No pulse deficits. Respiratory: Lungs have equal breath sounds bilaterally, clear to auscultation. No rales, rhonchi or wheezes noted. No increased work of breathing, no retractions or nasal flaring. Back: No spinal tenderness. No costovertebral tenderness. Full range of motion. Skin: Warm, dry with normal turgor. Normal color with no rashes, no lesions, and no evidence of cellulitis. Neuro: Awake and alert, GCS 15, oriented to person, place, time, and situation. Cranial nerves II-XII grossly intact. Motor strength 5/5 in all extremities. Sensory grossly intact. Cerebellar exam normal. Normal gait. 19:31 Back: pain, that is mild, of the left mid back, ROM is normal, normal spinal alignment noted, CVA tenderness, that is mild, is noted on the left, Vital Signs: 16:44 BP 120 / 83; Pulse 76; Resp 18; Temp 97.7(TE); Pulse Ox 100% on R/A; Weight 65.77 kg; ld1 Height 5 ft. 4 in. ; Pain 8/10; 19:33 BP 118 / 77; Pulse 72; Resp 17; Temp 98.2; Pulse Ox 99% ; me1 16:44 Body Mass Index 24.89 (65.77 kg, 162.56 cm) ld1 16:44 Pain Scale: Adult ld1 MDM: 16:25 Medical Screening Exam initiated dr5 19:31 Differential diagnosis: viral Infection, bacterial infection, Urinary tract infection, dr5 pyelonephritis. Data reviewed: vital signs, nurses notes. I considered the following discharge prescriptions or medication management in the emergency department Medications were administered in the Emergency Department. See MAR. Care significantly affected by the following chronic conditions: Anemia. Care significantly affected by the following Social Determinants of Health: Poor access to healthcare and/or lack of insurance, Poor access to transportation, Problems related to employment. Counseling: I had a detailed discussion with the patient and/or guardian regarding the historical points, exam findings, and any diagnostic results supporting the discharge/admit diagnosis, the presence of at least one elevated blood pressure reading (>120/80) during this emergency department visit, lab results, the need for outpatient follow up, for definitive care, a family practitioner, to return to the emergency department if symptoms worsen or persist or if there are any questions or concerns that arise at home. ED course: 1 g Rocephin IV given in ER due to pharmacy is likely being closed. Will give Keflex twice daily for the next 10 days. Recommended patient follow-up primary care doctor this next week and return to ER for worsening conditions. All questions answered and patient is well-appearing on discharge.. 07/25 16:25 Order name: Urinalysis w/ reflexes; Complete Time: 17:15 [facility] 07/25 16:25 Order name: Test, Urine; Complete Time: 17:14 [facility] 07/25 16:48 Order name: CBC with Diff; Complete Time: 19:01 [facility] 07/25 16:48 Order name: CMP; Complete Time: 19:01 [facility] 07/25 16:48 Order name: Lipase; Complete Time: 19:01 [facility] 07/25 17:17 Order name: Urine Culture EDMO 07/25 16:48 Order name: IV Saline Lock; Complete Time: 18:22 [facility] 07/25 16:48 Order name: Labs collected and sent; Complete Time: 18:22 dr5 Administered Medications: 18:28 Drug: Ondansetron IVP 4 mg IVP once; over 2 minutes Route: IVP; Site: right antecubital;me1 19:15 Follow up: Response: No adverse reaction; Nausea is decreased me1 18:28 Drug: NS 0.9% IV 1000 ml IV at 1 bolus Per protocol; to be given as a bolus over 60 me1 minutes Route: IV; Rate: 1 bolus; Site: right antecubital; 19:30 Follow up: Response: No adverse reaction; IV Status: Completed infusion; IV Intake: me1 1000ml 19:15 Drug: Rocephin IV 1 grams IV at per protocol once; Given slow IV push per pharmacy me1 instructions Route: IV; Rate: per protocol; Site: right antecubital; 19:30 Follow up: Response: No adverse reaction; IV Status: Completed infusion me1 Disposition Summary: 07/25/24 19:28 Discharge Ordered Notes: Location: Home dr5 Condition: Stable dr5 Diagnosis - UTI/ Urinary tract infection, site not specified dr5 Followup: dr5 - With: Emergency Department - When: As needed - Reason: Worsening of condition Followup: dr5 - With: Private Physician - When: 1 - 2 days - Reason: Recheck today's complaints, Continuance of care, Re-evaluation by your physician Discharge Instructions: - Discharge Summary Sheet dr5 - Urinary Tract Infection, Adult dr5 Forms: - Medication Reconciliation Form dr5 - Antibiotic Education dr5 - Patient Portal Instructions dr5 - Leadership Thank You Letter dr5 Prescriptions: - Cephalexin 500 mg Oral Capsule - take 1 capsule ORAL route every 12 hours for 10 days; 20 capsule; Refills: 0, dr5 Product Selection Permitted Signatures: Dispatcher [employer] EDMS Kavitha Carter, RN RN ld1 Christel Trammell RN RN me1 Michael Villegas, SECURITY POLICE-C SECURITY POLICE-Cdr5 Corrections: (The following items were deleted from the chart) 16:48 16:48 CBC+H.LAB.BRZ ordered. EDMS EDMS 16:48 16:48 COMPREHENSIVE METABOLIC PANEL+C.LAB.BRZ ordered. EDMS EDMS 16:48 16:48 LIPASE+C.LAB.BRZ ordered. EDMS EDMS 19:31 19:29 Patient is a 33-year-old female with a history of anemia coming in with dysuria dr5 and back pain. dr5
[2024-07-25 20:22] VITALS: BP 118/77; TEMP 98.2; O2SAT 99
== END 2024-07-25 19:35 | disposition home or self-care (01) ==
LOC: ER 16:04
DX: N39.0 Urinary tract infection, site not specified (principal)
CPT/HCPCS: 36415; 80053; 81001; 81025; 83690; 85025; 87086; 87088; 96361; 96374; 96375; 99284; J0696; J2405; J7030